=== PATIENT | male | born 1985 | race Caucasian/White ===

== ENCOUNTER 2025-09-07 21:49 | Emergency (ER) | payer OTHER, SELFPAY ==
--- NOTE | ~2025-09-07 | CT_ITS ---
CT HEAD NON-CONTRAST Clinical History: headache, dizziness, presyncopal episode Comparison: None Technique: Unenhanced axial images skull base to vertex Coronal, sagittal reformats CT images acquired with automatic exposure control for dose reduction DLP: 681 mGy-cm Findings: Sulci, ventricles: Unremarkable. No intracerebral hemorrhage. No evidence acute territorial infarct. No mass effect, midline shift. Bony calvarium intact. Visualized paranasal sinuses: Clear. Mastoid air cells: Clear. IMPRESSION: 1. No acute intracranial findings. Reviewed, dictated and finalized at location R. ICATION SYSTEMS ENGINEER
[2025-09-07 22:12] VITALS: BP 113/75; PULSE 105; RESP 18; TEMP 37.5; O2SAT 99
--- OUTSIDE RECORDS SUMMARY | 2025-09-08 00:35 | XMS_ITS | Clinical Summary ---
Author Organization [facility] lin Address [address] [place] [address] Care Team Providers Care Print Graphic Designer Name Role Phone Unavailable Primary Care Provider Unavailabl e Social History Tobacco Use Types Packs/Day Years Used Date Smoking Tobacco: Never Assessed Sex and Gender Information Value Date Recorded Sex Assigned at Not on file Legal Sex Male 4:49 PM EST Gender Identity Not on file Sexual Orientation Not on file Plan of Treatment Not on file Medical Devices Not on file Insurance [facility]
--- OUTSIDE RECORDS SUMMARY | 2025-09-08 00:35 | XMS_ITS | Clinical Summary ---
Author Organization [facility] Address [address] [place] [address] Phone Care Team Providers Care Field Hockey Coach Name Role Phone Provider, Unknown Primary Care Provider Unavaila ble Allergies No known active allergies Medications Cetirizine HCl (ZYRTEC PO) Take by mouth. Active Active Problems No known active problems Social History Tobacco Use Types Packs/Day Years Used Date Smoking Tobacco: Never Smokeless Tobacco: Never Alcohol Use Standard Drinks/Week Comments Yes 0 (1 standard drink = 0.6 oz pur e alcohol) socially Sex and Gender Information Value Date Recorded Sex Assigned at Not on file Legal Sex Male 9:34 PM CDT Gender Identity Not on file Sexual Orientation Not on file Last Filed Vital Signs Vital Sign Reading Time Taken Comments Blood Pressure 140/94 04/05/2022 11:33 AM CDT Pulse 98 04/05/2022 11:33 AM CDT Temperature 36.2 C (97.2 F) 04/05/2022 11:33 AM CDT Respiratory Rate 18 04/05/2022 11:33 AM CDT Oxygen Saturation 99% 04/05/2022 11:33 AM CDT Inhaled Oxygen Concentration - - Weight - - Height - - Body Mass Index - - Plan of Treatment Health Maintenance Due Date Last Done Comments Hepatitis C Virus (HCV) Screening 1987 Varicella Immunization (1 of 2 - 13+ 2-dose series) 01/12/2000 Influenza Immunization (#1) 2025 07/20/2020, 1 SARS-COV-2 Immunization (2024- season) 2025 10/19/2021, 02/25/2021, 02/04/2021 Respiratory Syncytial Virus (RSV) Immunization (Adult) (1 - 1-dose 75+ series) 2062 Hepatitis B Immunization Completed 997, 02/14/1997, 01/12/1997 DTaP/Tdap/Td Immunization Discontinued 2017, 05/15/2002, 05/08/1992, Additional history exists TdaP Immunization Completed 12/14/2017 Human Papillomavirus (HPV) Immunization (No Doses Required) Completed Meningococcal Immunization (ACWY) Aged Out No longer eligible based on patient's age to complete this topic Pneumococcal Immunization Combined Aged Out No longer eligible based on patient's age to complete this topic Rotavirus Immunization Aged Out No lo nger eligible based on patient's age to complete this topic Care Teams Field Hockey Coach Relationship Specialty Start Date End Date Provider, Unknown UNKNOWN PCP - General 04/05/22
[2025-09-08 00:38] LABS: Hematocrit 44.1 % (42.0-52.0); Hemoglobin 14.7 g/dL (14.0-18.0); Immature Granulocyte Percent A 0.2 % (0-0.5); Lymphocytes Absolute Auto 0.76 K/mm3 (0.9-3.2); Mean Corpuscular HGB Conc 33.3 g/dl (32-36); Mean Corpuscular Hemoglobin 28.5 pg (26-34); Mean Corpuscular Volume 85.6 fl (80-100); Nucleated Red Blood Cells Absolute Auto 0.000 K/mm3 (0.0-0.012); Nucleated Red Blood Cells Perc 0.0 % (0.0-0.2); Platelet Count Result 170 k/mm3 (150-375); Red Blood Count 5.15 M/mm3 (4.6-6.20); White Blood Count 6.6 K/mm3 (4.5-10.0)
[2025-09-08 00:40] VITALS: BP 124/95; PULSE 86; RESP 15; O2SAT 95
--- NOTE | 2025-09-08 00:53 | ED.HA ---
HPI - Headache General Chief Complaint: Headache Stated Complaint: Headache, weak, nauseous. lightheaded Time Seen by Provider: 09/08/25 00:03 History of Present Illness HPI Narrative: Patient is a 40-year-old male who presents to the ER with a headache that started this morning. He reports he started experiencing weakness and his joints started aching throughout the day. Patient reports this evening he had a presyncopal event where he felt lightheaded and dizzy. He also endorses nausea but denies vomiting. Patient reports his symptoms are worse when he is standing. He denies any congestion, chest pain, shortness a breath, or recent cough. Patient reports his only medical history is seasonal allergies. Related Data Allergies Allergy/AdvReac Type Severity Reaction Status Date / Time No Known Allergies Allergy Verified 09/07/25 22:15 Review of Systems Review of Systems: All systems reviewed & are unremarkable except as noted in HPI and below Exam Narrative: GENERAL: Well appearing, well-nourished, non-toxic, in no acute distress. HEAD: Normocephalic, atraumatic. NECK: Supple. No adenopathy, no masses. RESPIRATORY: Airway patent, respirations nonlabored. Clear to auscultation bilaterally, no rales, rhonchi, wheezing. CARDIOVASCULAR: Regular rate and rhythm without murmurs, rubs, or gallops. Peripheral pulses 2+ and equal bilaterally. ABDOMINAL: Soft, nontender, nondistended, no hepatosplenomegaly. Normoactive BS. MUSCULOSKELETAL: Moves all extremities. Strength/ROM intact without gross deformities. SKIN: Warm, dry, normal color. No rashes. NEURO: A&O X3. Speech clear. Cranial nerves II-XII intact. No ataxic movements. PSYCHIATRIC: Appropriate mood and affect. Normal interaction. Course Vital Signs Vital signs: Vital Signs Temperature 37.5 C 09/07/25 22:12 Pulse Rate 105 H 09/07/25 22:12 Respiratory Rate 18 09/07/25 22:12 Blood Pressure 113/75 09/07/25 22:12 Pulse Oximetry 99 09/07/25 22:12 Oxygen Delivery Room Air 09/07/25 22:12 Temperature 37.5 C 09/07/25 22:12 Pulse Rate 81 09/08/25 02:32 Respiratory Rate 15 09/08/25 02:32 Blood Pressure 127/86 09/08/25 02:32 Pulse Oximetry 97 09/08/25 02:32 Oxygen Delivery Room Air 09/07/25 22:12 [facility] Narrative Medical decision making narrative: Patient is a 40-year-old male who presents to the ER with a headache that started this morning. He reports he started experiencing weakness and his joints started aching throughout the day. Patient reports this evening he had a presyncopal event where he felt lightheaded and dizzy. He also endorses nausea but denies vomiting. Patient reports his symptoms are worse when he is standing. He denies any congestion, chest pain, shortness a breath, or recent cough. Patient reports his only medical history is seasonal allergies. Labs Ordered: CBC, CMP, COVID/flu/ RSV Imaging Ordered: CT head Medications Ordered: Tylenol p.o., Toradol IV Results: patient's CT head indicates no evidence of acute intracranial pathology. No prior comparisons. Diagnosis: Headache, mild dehydration, viral infection Patient Education/Shared MDM: Results of lab work and imaging shared with patient. He endorses improvement of symptoms following medication administration. Patient was able to ambulate around the ER without worsening symptoms or presyncopal episodes. Patient strongly advised to maintain hydration status upon discharge and follow-up with his PCP as needed. He will not be discharged home with any new prescriptions. Patient strongly advised to use Tylenol and/or ibuprofen as needed symptom control at home. Strict return precautions provided. Patient verbalized understanding and is in agreement with plan. Vital signs stable at time of discharge. All questions answered. Differential Diagnosis Differential Diagnosis: Headache, viral infection, COVID, flu, subdural hematoma, vertigo Lab Data [facility] Lab Attestation statement: I personally reviewed the patient's lab results. 09/08/25 00:34 09/08/25 00:34 Labs: Lab Results 09/08/25 09/08/25 Range/Units 00:34 01:22 WBC 6.6 (4.5-10.0) K/mm3 RBC 5.15 (4.6-6.20) M/mm3 Hgb 14.7 (14.0-18.0) g/dL Hct 44.1 (42.0-52.0) % MCV 85.6 (80-100) fl MCH 28.5 (26-34) pg MCHC 33.3 (32-36) g/dl RDW 13.2 (11.5-14.5) % Plt Count 170 (150-375) k/mm3 MPV 9.9 (7.4-10.4) fl Immature Gran % (Auto) 0.2 (0-0.5) % Neut % (Auto) 76.6 H (45.5-73.1) % Lymph % (Auto) 11.5 L (18.3-44.2) % Graham % (Auto) 10.9 H (2.6-8.5) % Eos % (Auto) 0.3 (0-4.4) % Baso % (Auto) 0.5 (0.2-1.2) % Lymph # (Auto) 0.76 L (0.9-3.2) K/mm3 Graham # (Auto) 0.7 H (0.1-0.6) K/mm3 Eos # (Auto) 0.0 (0-0.3) K/mm3 Baso # (Auto) 0.0 (0.0-0.1) K/mm3 Abs Immat Gran (auto) 0.01 (0.00-0.031) K/mm3 Absolute Neuts (auto) 5.1 (1.3-6.7) K/mm3 Absolute Nucleated RBC 0.000 (0.0-0.012) K/mm3 Nucleated RBC % 0.0 (0.0-0.2) % Sodium 135 L (137-145) mmol/L Potassium 3.7 (3.4-5.0) mmol/L Chloride 103 (98-107) mmol/L Carbon Dioxide 26 (22-30) mmol/L Anion Gap 6 (4-12) mmol/L BUN 27 H (9-20) mg/dL Creatinine 0.95 (0.7-1.3) mg/dL Estim Creat Clear Calc 99 ml/min Estimated GFR > 60 (59 - ) Glucose 112 H (65-110) mg/dL Calcium 9.2 (8.4-10.2) mg/dL Total Bilirubin 0.7 (0.2-1.3) mg/dL AST 29 (17-59) U/L ALT 25 (6-50) U/L Alkaline Phosphatase 74 (38-126) U/L Total Protein 7.6 (6.3-8.2) g/dL Albumin 4.3 (3.5-5.1) g/dL Influenza A (RT-PCR) Negative (Negative) Influenza B (RT-PCR) Negative (Negative) RSV (RT-PCR) Negative (Negative) SARS-CoV-2 RNA (RT-PCR) Negative (Negative) Imaging Data Attestation: I personally reviewed and interpreted this imaging study as follows: Radiologist's impression: No acute intracranial pathology. Discharge Plan Discharge Clinical Impression: Headache, Dehydration, mild, Viral infection Patient Disposition: Home Condition: Stable Instructions: Antibiotic Form, Acute Headache (ED) Additional Instructions: Please return to the ER with any worsening symptoms. Follow-up with primary care provider as needed. You may take Tylenol and/or ibuprofen for symptom control. Please remember to drink lots of water and stay hydrated. Patient Language: Albanian Follow-up/Referrals: PHYSICIAN,TRANSMISSIONS SYSTEMS OPERATOR [Primary Care Provider, Internal Medicine] Gene Brown MD [Physician, Family Practice] Stand Alone Forms: Work/School Release IP Time of Disposition: 03:10
[2025-09-08 00:55] LABS: Alanine Aminotransferase 25 U/L (6-50); Albumin Level 4.3 g/dL (3.5-5.1); Alkaline Phosphatase 74 U/L (38-126); Anion Gap 6 mmol/L (4-12); Aspartate Amino Transferase 29 U/L (17-59); Bilirubin,Total 0.7 mg/dL (0.2-1.3); Blood Urea Nitrogen 27 mg/dL (9-20); Calcium 9.2 mg/dL (8.4-10.2); Carbon Dioxide 26 mmol/L (22-30); Chloride 103 mmol/L (98-107); Estimated CRCL calculation 99 ml/min; Estimated Glomerular Filt Rate > 60; Glucose 112 mg/dL (65-110); Potassium 3.7 mmol/L (3.4-5.0); Sodium 135 mmol/L (137-145); Total Protein 7.6 g/dL (6.3-8.2)
[2025-09-08] MEDS: SODIUM CHLORIDE 0.9% IV 1,000 ML 999 ML IV CONT (00:55)
[2025-09-08] MEDS: ACETAMINOPHEN 500 MG TABLET 1000 MG PO (01:20)
[2025-09-08 02:09] LABS: Influenza A QL RT-PCR Negative (Negative); Influenza B QL RT-PCR Negative (Negative); RSV RNA, RT-PCR Negative (Negative); SARS-CoV-2 RNA PCR Negative (Negative)
[2025-09-08 02:32] VITALS: BP 127/86; PULSE 81; RESP 15; O2SAT 97
[2025-09-08 03:39] VITALS: BP 127/86; PULSE 81; RESP 15; O2SAT 97
== END 2025-09-08 03:42 | disposition home or self-care (01) ==
PROVIDERS: Emergency Provider Registered Nurse
DX: B34.9 Viral infection, unspecified (principal); R51.9 Headache, unspecified; E86.0 Dehydration; Z20.822 Contact with and (suspected) exposure to COVID-19
CPT/HCPCS: 36415; 70450; 80053; 85025; 87637; 96360; 99284; A9270; J7030